=== PATIENT | female | born 1950 | race Two or more races ===

== ENCOUNTER 2023-02-08 14:34 | Emergency (ER) | payer OTHER ==
[~2023-02-08] VITALS: Ht 152.4 cm; Wt 49.4 kg
--- NOTE | 2023-02-08 14:40 | NUR ---
PATRICIA MICHEL FROM [facility] INTAKE, PT HAS BEEN POCKETING FOOD FOR 2 DAYS. PT VITALS ARE WITHIN NORMAL LIMITS. AWAITING MD BOSTON.
[2023-02-08] MEDS ORDERED: DIVA125C2 PO (15:27)
[2023-02-08] MEDS ORDERED: HYOS0.1273 SL (15:27)
[2023-02-08] MEDS ORDERED: CARV12.52 PO (15:27)
[2023-02-08] MEDS ORDERED: ALPR0.25 PO (15:27)
[2023-02-08] MEDS ORDERED: BISA10SU11 RC (15:27)
[2023-02-08] MEDS ORDERED: ACET-2605 PO (15:27)
[2023-02-08] MEDS ORDERED: ACET-868 PO (15:27)
[2023-02-08] MEDS ORDERED: SENN-261 PO (15:27)
[2023-02-08] MEDS ORDERED: LOSA50TA39 PO (15:27)
--- NOTE | 2023-02-08 16:17 | NUR ---
IV ESTABLISHED L WRIST 20G. LABS DRAWN AND COLLECTED AT BEDSIDE
[2023-02-08 16:24] LABS: BASOPHILS % (AUTO) 0.5 % (0.0-2.0); HEMATOCRIT 41 % (33-45); HEMOGLOBIN 12.8 g/dL (11.5-14.8); LYMPHOCYTES # (AUTO) 1.5 K/uL (0.8-4.8); LYMPHOCYTES % (AUTO) 22.5 % (20.0-44.0); MEAN CORPUSCULAR HGB CONC 31 g/dl (31.0-36.0); MEAN CORPUSCULAR VOLUME 101 fL (82-100); MONOCYTES # (AUTO) 0.6 K/uL (0.1-1.30); MONOCYTES % (AUTO) 8.7 % (2.0-12.0); NEUTROPHILS # (AUTO) 4.6 K/uL (1.8-8.9); NEUTROPHILS % (AUTO) 67.3 % (43.0-81.0); PLATELET COUNT (AUTO) 173 K/uL (150-450); RED BLOOD CELL COUNT(AUTO) 4.05 MIL/uL (4.0-5.2); WHITE BLOOD COUNT (AUTO) 6.8 K/uL (4.3-11.0)
--- NOTE | 2023-02-08 16:24 | NUR ---
URINE COLLECTE DNAD SENT
--- NOTE | 2023-02-08 16:27 | NUR ---
CALLED [facility] AND OPENED UP A CASE FOR THE PT
--- NOTE | 2023-02-08 16:27 | NUR ---
COVID TEST COLLECTED AND SENT
[2023-02-08 16:38] LABS: ALANINE AMINOTRANSFERASE 25 U/L (12-78); ALBUMIN 2.2 g/dL (3.4-5.0); ALCOHOL, BLOOD < 3 mg/dL (0-0); ALKALINE PHOSPHATASE 58 U/L (46-116); ASPARTATE AMINOTRANSFERASE 34 U/L (15-37); BILIRUBIN,DIRECT 0.4 mg/dL (0.0-0.2); BILIRUBIN,TOTAL 0.8 mg/dL (0.2-1.0); CALCIUM, SERUM 8.7 mg/dL (8.5-10.1); CARBON DIOXIDE 26 mmol/L (21-32); CREATININE 0.7 mg/dL (0.6-1.3); GLUCOSE 110 mg/dL (74-106); POTASSIUM 4.4 mmol/L (3.5-5.1); TOTAL PROTEIN, SERUM 7.6 g/dL (6.4-8.2); UREA NITROGEN, BLOOD 35 mg/dL (7-18)
[2023-02-08 16:57] LABS: CHLORIDE 126 mmol/L (98-107); SODIUM SERUM 156 mmol/L (136-145)
--- NOTE | 2023-02-08 16:57 | NUR ---
CALLED [facility] FOR CALL BACK
[2023-02-08 16:59] LABS: ACETAMINOPHEN < 10 ug/ml (10-30)
--- NOTE | 2023-02-08 16:59 | NUR ---
son shayla called and left contact # [phone]
[2023-02-08] MEDS: IV NS 0.9% 1,000 ML IV ONE (17:12)
--- NOTE | 2023-02-08 17:13 | NUR ---
PT TAKEN TO CT VIA [facility]
[2023-02-08 17:33] LABS: BILIRUBIN,URINE 1+ (NEGATIVE); COLOR,URINE YELLOW (YELLOW); LEUKOCYTE ESTERASE ,URINE 1+ (NEGATIVE); NITRITE, URINE NEGATIVE (NEGATIVE); PROTEIN,URINE 1+ mg/dl (NEGATIVE); UGLUCOSE NEGATIVE (NEGATIVE); UROBILINOGEN,URINE >=8.0 EU/dL (0.2)
--- NOTE | 2023-02-08 17:40 | NUR ---
AWAITING TOMS BROOK TO CALL BACK WITH ACCEPTANCE INFO
[2023-02-08 18:25] LABS: RBC,URINE 0-2 /HPF (0-2)
[2023-02-08 18:30] LABS: BACTERIA,URINE 3+ /HPF (None Seen); URINE AMORPHOUS URATE Few /HPF (None Seen)
--- NOTE | 2023-02-08 19:55 | NUR ---
ACCEPTED AT [facility] TELE ROOM #[id number] ADONIS Pérez WILL CALL BACK WITH AMBULANCE ETA
--- NOTE | 2023-02-08 20:09 | NUR ---
[facility] ETA
--- NOTE | 2023-02-08 20:25 | NUR ---
REPORT GIVEN TO MARKY
--- NOTE | 2023-02-08 20:49 | NUR ---
NEW ETA [id number]
--- NOTE | 2023-02-08 21:20 | NUR ---
[facility] UNIT #96 AT BEDSIDE FOR PICKUP TO TRANSFER [facility]. REPORT GIVEN TO [facility] NURSE AT BEDSIDE. TRANSFER FORM DISC AND PATIENT CHART PROVIDED TO [facility] NURSE.
[2023-02-08 21:37] VITALS: BP 138/88
--- NOTE | 2023-02-08 21:37 | NUR ---
Patient discharged to home in stable condition. Written and verbal after care instructions given. Patient verbalizes understanding of instruction.
== END 2023-02-08 21:39 ==
LOC: ER 15:27
DX: R62.7 Adult failure to thrive (principal); E87.0 Hyperosmolality and hypernatremia; E87.8 Other disorders of electrolyte and fluid balance, not elsewhere classified; R41.82 Altered mental status, unspecified; Z20.822 Contact with and (suspected) exposure to COVID-19; I10 Essential (primary) hypertension; F41.9 Anxiety disorder, unspecified; F32.A Depression, unspecified; Z68.21 Body mass index [BMI] 21.0-21.9, adult; Z88.8 Allergy status to other drugs, medicaments and biological substances; Z79.899 Other long term (current) drug therapy
CPT/HCPCS: 99291; 96360; 70450; 74176; 85025; 80048; 87086; 80076; 81001; 36415; 87426; 80143; 80320; 80307; J7030; C9803; G0480